=== PATIENT | male | born 1955 | race Caucasian/White ===

== ENCOUNTER 2023-12-08 13:19 | Day surgery (SDC) | payer MEDICARE, BC ==
[2023-12-08] VITALS (13 sets, daily range): BP systolic 96–155; BP diastolic 57–100; PULSE 96–195; RESP 14–22; TEMP 97.8; O2SAT 95–97
[~2023-12-08] VITALS: Ht 177.8 cm; Wt 128.3 kg
[2023-12-08] MEDS ORDERED: albuterol 2.5 MG/3 ML nebule NEB PRN (13:50)
[2023-12-08] MEDS ORDERED: FLEC100T PO (14:00)
[2023-12-08] MEDS ORDERED: APIX5TAB3 PO (14:00)
[2023-12-08] MEDS ORDERED: AMLO-381 PO (14:00)
[2023-12-08 14:19] LABS: BASOPHILS # (AUTO) 0.1 X10'3 (0-0.2); BASOPHILS % (AUTO) 1.3 % (0-1); EOSINOPHILS # (AUTO) 0.2 X10'3 (0-0.9); EOSINOPHILS % (AUTO) 2.4 % (0-6); HEMATOCRIT 49.7 % (42.0-52.0); HEMOGLOBIN 16.7 g/dl (14.0-17.9); LYMPHOCYTES # (AUTO) 1.7 X10'3 (1.1-4.8); LYMPHOCYTES % (AUTO) 17.8 % (21-51); MEAN CORPUSCULAR HEMOGLOBIN 29.9 PG (27.0-31.0); MEAN CORPUSCULAR HGB CONC 33.7 g/dL (33.0-36.5); MEAN CORPUSCULAR VOLUME 88.7 FL (78-98); MEAN PLATELET VOLUME 8.2 FL (7.4-10.4); MONOCYTES # (AUTO) 0.6 X10'3 (0-0.9); MONOCYTES % (AUTO) 6.1 % (2-12); NEUTROPHILS # (AUTO) 7.1 X10'3 (1.8-7.7); NEUTROPHILS % (AUTO) 72.4 % (42-75); PLATELET COUNT 357 X10'3 (140-440); RED CELL DISTRIBUTION WIDTH 14.3 % (11.5-14.5); WHITE BLOOD COUNT 9.8 X10'3 (4.5-11.0)
[2023-12-08 14:26] LABS: ALBUMIN 3.8 G/DL (3.4-5.0); ANION GAP 14 (8-16); BLOOD UREA NITROGEN 25 MG/DL (7-18); BUN/CREATININE RATIO 13.5 (10.0-20.0); CALCIUM 9.6 MG/DL (8.5-10.1); CHLORIDE 107 MMOL/L (99-107); CREATININE 1.85 MG/DL (0.60-1.10); GLUCOSE 116 MG/DL (70-104); POTASSIUM 5.1 MMOL/L (3.5-5.1); SODIUM 143 MMOL/L (135-145); eCRCL 41 ML/MIN; eGFR 37 ML/MIN
[2023-12-08] MEDS: MIDAZolam 1mg/ml 10ml vial IV ONE (14:34)
[2023-12-08] MEDS: fentaNYL/PF 50MCG/1 ML 2ML syringe IV ONE (14:34)
== END 2023-12-08 15:30 | disposition home or self-care (01) ==
LOC: SSTAY O 13:19
PROVIDERS: ATTEND Student in an Organized Health Care Education/Training Program
DX: I48.91 Unspecified atrial fibrillation (principal); I10 Essential (primary) hypertension; E78.00 Pure hypercholesterolemia, unspecified; E66.3 Overweight; G47.30 Sleep apnea, unspecified; I42.9 Cardiomyopathy, unspecified; Z79.01 Long term (current) use of anticoagulants; Z79.899 Other long term (current) drug therapy; Z68.41 Body mass index [BMI] 40.0-44.9, adult
CPT/HCPCS: 36415; 80048; 85025; 92960; 93005; J2250; J3010; J7030; A4620